=== PATIENT | female | born 1990 | race Caucasian/White ===

== ENCOUNTER 2016-07-15 00:15 | Emergency (ER) | payer OTHER ==
--- NOTE | 2016-07-15 02:06 | ED CLINICAL REPORT ---
Clinical Report - Physicians/Mid Levels [facility] [address] [place] [address] 07/15/2016 0:15 [id number] Ar[facility]- By private vehicle. Historian- patient. HISTORY OF PRESENT ILLNESS Chief Complaint: COUGH. This started Past 2 weeks and is still present (staying the same). It was abrupt in onset and has been constant but is not gone now. The illness is described as moderate. The patient has had a cough, difficulty breathing, nasal congestion, fever and chills. She has had a nasal discharge. Additional history - The patient has had contact with a sick individual. Similar symptoms previously: None. Recent medical care: The patient was seen recently in a clinic (Patient on antibiotics and steroid medications). REVIEW OF SYSTEMS No diarrhea, abdominal pain, pedal edema, calf pain or skin rash. All systems otherwise negative, except as recorded above. PAST HISTORY See nurses notes. SOCIAL HISTORY Smoker- current status unknown. History of occasional drug use: marijuana. No alcohol use. No recent travel. Is a local resident. no trouble to places with high risk for tuberculosis. FAMILY HISTORY (family history of asthma). ADDITIONAL NOTES The nursing notes have been reviewed. PHYSICAL EXAM Vital Signs: 07/15/2016 00:19 BP: 125/84. HR: 118. RR: 18. O2 saturation: 100%. Temp: 98.8 F. Pain level now: 8/10. Blood pressure normal. Oxygen saturation normal. Appearance: Alert. No acute distress. Eyes: Pupils equal, round and reactive to light. Eyes normal inspection. ENT: Ears normal. Nose normal. Pharynx normal. Uvula midline. Neck: Normal inspection. Neck supple. No meningeal signs. CVS: Normal heart rate and rhythm. Heart sounds normal. Pulses normal. Respiratory: No respiratory distress. Breath sounds normal. No accessory muscle use, rales, rhonchi, wheezes or stridor. Abdomen: Soft and nontender. No organomegaly. Back: Normal inspection. Skin: Skin warm and dry. Normal skin color. No rash. Normal skin turgor. Extremities: Extremities exhibit normal ROM. No lower extremity edema. Neuro: Oriented X 3. No motor deficit. LABS, X-RAYS, AND EKG Chest X-ray: No acute disease. Normal lung markings present. Normal heart size. Mediastinum normal. No infiltrate. Views: PA and lateral. Technique: good. The X-rays were independently viewed by me and interpreted contemporaneously by me. PROGRESS AND PROCEDURES Course of Care: tthe patient is a pleasant 25-year-old female with past medical history significant for childhood asthma presented for evaluation of shortness of breath. Patient reports that the shortness of breath has been going on for the past 2 weeks. The patient states that she recently been seen by an outside facility and treated with antibiotics. Patient states that she's been on the antibiotics for approximately one day now. Patient reports coughing up blood. Likely due to bronchitis. We'll evaluate chest x-ray. Patient states she has not had a chest x-ray at. We'll provide breathing treatment here in the emergency department. The patient appears nontoxic and is in no acute distress. Respirations are regular and unlabored. Patient does have moderate amount of coughing. Medications for cough provided here in the emergency department. Do not feel patient has a pulmonary embolism. Symptoms are upper respiratory tract in nature. No risk factors for TB. patient reports significant improvement with breathing treatments. Chest x-ray does not show any signs of acute consolidations. Patient is resting in bed and in no acute distress. Patient does have episodes of moderate coughing that has since improved after Antitussive medicine and review treatments provided. patient provided another breathing treatment after reported improvement with her symptoms. Patient with better air movement. We'll reassess after the breathing treatment has been given. Patient was significant improved symptoms while here in the emergency department. Patient reports that she isfeeling better now and feels at a point where she can go home. The patient is having normal nonlabored respirations with good air movement bilaterally. Coughing again has improved. Do not Patient is started been on appropriate medical therapy that startedat an outside facility. Discussed with patient workup, diagnosis, home care, follow-up, and return precautions. All questions answered. The patient expressed understanding of these instructions and was agreeable to them. CLINICAL IMPRESSION Acute bronchospasm Acute bacterial bronchitis. INSTRUCTIONS (continue taking the medications prescribed by your doctor). Your Current Medications: CONTINUE TAKING THE FOLLOWING MEDICATIONS: Albuterol Sulfate HFA Inhalation. Flovent HFA Inhalation. Prescription Medications: Phenergan w/ Codeine 10mg / 6.25mg per 5 mL: take 1-2 teaspoons every 8 hours as needed for pain or cough. Dispense sixty (60) mL. No refill. Substitution is permissible. (use with cautions. can make you very sleepy) Follow-up: Return to the emergency department as needed. Follow up with your doctor in three days. Reason for referral: recheck today's concerns. Summary of care provided to patient via paper. Screening today revealed the patient's blood pressure to be in the normal range. The patient should follow up with a primary care provider for blood pressure management. Understanding of the discharge instructions verbalized by patient. (Electronically signed by Carmelo Jack Dr. 07/18/2016 17:35)
--- NOTE | 2016-07-15 02:07 | ED ORDER SUMMARY ---
..... Patient: BOB SALAZAR OrderSheet VisitID: [id number] [place] [address] 25y, F Registration Date/Time: 07/15/2016 ORDER SHEET Weight: 53.9 kg (stated) Allergies: No Known Drug Allergy GENERAL ORDERS: Chest 2V Urgent (00:07/15/2016 Steven Davidson) (Ack 0:35 Greg ER Substation Electrician Supervisor) (0:53 GUnger) Pulse oximeter (:07/15/2016 Steven Davidson) (0:40 HKone R.N.) MEDICATION ORDERS: DuoNeb Neb Tx 1 unit dose (NOW) (:07/15/2016 Steven Davidson) (Ack 0:35 HKone R.N.) (0:51 HKone R.N.) Phenergan-Codeine PO 10 mL (HIGH ALERT MEDICATION, NOW) (00:07/15/2016 Steven Davidson) (Ack 0:35 HKone R.N.) (0:40 HKone R.N.) Albuterol Neb Tx 5 mg (NOW) (01:07/15/2016 Steven Davidson) (Ack 1:39 HKone R.N.) (2:16 HKone R.N.) IV FLUIDS: ORDER SHEET NOTES: [Electronically signed by Estee Santizo R.N. (02:07/15/2016)] [Electronically signed by Carmelo Jack Dr. (17:34 07/18/2016)] [Electronically locked/signed by Estee Santizo R.N. (02:07/15/2016)]
--- NOTE | 2016-07-15 02:07 | ED NURSING NOTES ---
Clinical Report - Nurses [facility] [address] [place] [address] 07/15/2016 0:15 [id number] TRI[facility] Triage time 0019. Acuity: LEVEL 4. Chief Complaint: COUGH. ARAM COMA SCORE: Aram Coma Scale: 15- eyes open spontaneously (4); best verbal response- oriented x 4 (5); best motor response- obeys commands (6). --00:25 Estee Santizo R.N. 00:19 07/15/16. BP: 125/84. HR: 118. RR: 18 (regular). O2 saturation: 100% on room air. Temp: 98.8 F (oral). Pain level now: 8/10. --00:25 Estee Santizo R.N. Weight: 53.9 kg stated. Height/Length: 66 inches Per Patient. BMI: 19.2. --00:18 Estee Santizo R.N. Medications Albuterol Sulfate HFA Inhalation. --00:23 Estee Santizo R.N. Flovent HFA Inhalation. --00:23 Estee Santizo R.N. Medication/allergy information source: the patient. --00:25 Estee Santizo R.N. Allergies No Known Drug Allergy. --00:23 Estee Santizo R.N. History Arrived by private vehicle. Historian: patient (boyfriend). Accompanied by friend. Primary physician ([facility]). ( pt c/o flu symptoms of cough and cold x 2 weeks. pt seen yesterday at [facility] yesterday and give antibiotic with Albuterol and Flovent inhalers.). Onset. (2 weeks). PAST MEDICAL HX: Last normal menstrual period- Jul 10, 2016. SOCIAL HX: Light tobacco smoker (cigarette)- less than 1/2 a pack per day. History of drug use: marijuana. (daily). No alcohol use. ABUSE ASSESSMENT: No report of abuse. FALL RISK ASSESSMENT: Fall risk assessment completed. No fall risk identified. NUTRITIONAL RISK ASSESSMENT: The nutritional risk assessment revealed no deficiencies. FUNCTIONAL ASSESSMENT: Functional assessment: no impairments noted. LEARNING NEEDS ASSESSMENT: The learning needs assessment revealed no barriers. SKIN INTEGRITY ASSESSMENT: Skin integrity risk assessment completed. No skin integrity risk identified. --00:25 Estee Santizo R.N. ADDITIONAL SURGERIES: Adenoidectomy. --00:23 Estee Santizo R.N. Interventions ID band on patient. To treatment room. --00:25 Estee Santizo R.N. PHYSICAL ASSESSMENT To room via wheelchair. GENERAL / NEURO / PSYCH: Alert. Oriented X 4. Appears in pain. HEENT: Mucous membranes are pink. RESPIRATORY: Respirations not labored. The patient can speak in full sentences. Cough. SKIN: Skin is warm and dry. Normal skin turgor. --00:31 Estee Santizo R.N. NURSING PROGRESS NOTES Patient gowned. Head of bed elevated. Two patient identifiers checked. Call light placed in reach. Side rails up x 1. Bed placed in lowest position. Brakes of bed on. Patient ready for evaluation. --00:25 Estee Santizo R.N. 00:38 07/15/2016 Duoneb (Ipratropium-Albuterol) Neb TX Nebulizer 1 unit dose given. Given by the respiratory therapist. Allergies verified and confirmed 5 rights. --00:51 Estee Santizo R.N. 00:40 07/15/2016 PHENERGAN-CODEINE (Promethazine-Codeine) PO Oral Suspension 10 mL given. Allergies verified and confirmed 5 rights. --00:40 Estee Santizo R.N. pt continues to c/o chest hurting with cough. pt sat up more in stretcher, given a lemon-[place] soda. --01:22 Estee Santizo R.N. 01:22 07/15/16. HR: 118. RR: 18 (unlabored). O2 saturation: 99% on room air. --02:16 Estee Santizo R.N. 01:30 07/15/2016 Albuterol Neb TX Nebulizer 5 mg given. Given by the respiratory therapist. Allergies verified and confirmed 5 rights. --02:16 Estee Santizo R.N. DISPOSITION / DISCHARGE Departure time: 213. Condition at departure: improved. No learning barriers present. Discharge instructions provided and reviewed with the patient. Reviewed medication(s). Prescription(s) given to the patient (phenergan with codeine syrup). Patient verbalized understanding. Written instructions provided in Irish. The patient was discharged by the physician. She was discharged home and accompanied by line director. She left the Emergency Department ambulatory and via private vehicle. Project Lead driving. Medication list reviewed and validated with the patient. --02:15 Estee Santizo R.N. 02:14 07/15/16. BP: 113/70. HR: 113. RR: 18 (unlabored). O2 saturation: 98% on room air. Temp: deferred. Pain level now: 11/27. --02:15 Estee Santizo R.N. Locked/Released at 07/15/2016 2:17 by Estee Santizo R.N.
--- NOTE | 2016-07-15 02:07 | ED NURSING NOTES ---
Clinical Report - Nurses [facility] [address] [place] [address] 07/15/2016 0:15 [id number] TRI[facility] Triage time 0019. Acuity: LEVEL 4. Chief Complaint: COUGH. ARAM COMA SCORE: Aram Coma Scale: 15- eyes open spontaneously (4); best verbal response- oriented x 4 (5); best motor response- obeys commands (6). --00:25 Estee Santizo R.N. 00:19 07/15/16. BP: 125/84. HR: 118. RR: 18 (regular). O2 saturation: 100% on room air. Temp: 98.8 F (oral). Pain level now: 8/10. --00:25 Estee Santizo R.N. Weight: 53.9 kg stated. Height/Length: 66 inches Per Patient. BMI: 19.2. --00:18 Estee Santizo R.N. Medications Albuterol Sulfate HFA Inhalation. --00:23 Estee Santizo R.N. Flovent HFA Inhalation. --00:23 Estee Santizo R.N. Medication/allergy information source: the patient. --00:25 Estee Santizo R.N. Allergies No Known Drug Allergy. --00:23 Estee Santizo R.N. History Arrived by private vehicle. Historian: patient (boyfriend). Accompanied by friend. Primary physician ([facility]). ( pt c/o flu symptoms of cough and cold x 2 weeks. pt seen yesterday at [facility] yesterday and give antibiotic with Albuterol and Flovent inhalers.). Onset. (2 weeks). PAST MEDICAL HX: Last normal menstrual period- Jul 10, 2016. SOCIAL HX: Light tobacco smoker (cigarette)- less than 1/2 a pack per day. History of drug use: marijuana. (daily). No alcohol use. ABUSE ASSESSMENT: No report of abuse. FALL RISK ASSESSMENT: Fall risk assessment completed. No fall risk identified. NUTRITIONAL RISK ASSESSMENT: The nutritional risk assessment revealed no deficiencies. FUNCTIONAL ASSESSMENT: Functional assessment: no impairments noted. LEARNING NEEDS ASSESSMENT: The learning needs assessment revealed no barriers. SKIN INTEGRITY ASSESSMENT: Skin integrity risk assessment completed. No skin integrity risk identified. --00:25 Estee Santizo R.N. ADDITIONAL SURGERIES: Adenoidectomy. --00:23 Estee Santizo R.N. Interventions ID band on patient. To treatment room. --00:25 Estee Santizo R.N. PHYSICAL ASSESSMENT To room via wheelchair. GENERAL / NEURO / PSYCH: Alert. Oriented X 4. Appears in pain. HEENT: Mucous membranes are pink. RESPIRATORY: Respirations not labored. The patient can speak in full sentences. Cough. SKIN: Skin is warm and dry. Normal skin turgor. --00:31 Estee Santizo R.N. NURSING PROGRESS NOTES Patient gowned. Head of bed elevated. Two patient identifiers checked. Call light placed in reach. Side rails up x 1. Bed placed in lowest position. Brakes of bed on. Patient ready for evaluation. --00:25 Estee Santizo R.N. 00:38 07/15/2016 Duoneb (Ipratropium-Albuterol) Neb TX Nebulizer 1 unit dose given. Given by the respiratory therapist. Allergies verified and confirmed 5 rights. --00:51 Estee Santizo R.N. 00:40 07/15/2016 PHENERGAN-CODEINE (Promethazine-Codeine) PO Oral Suspension 10 mL given. Allergies verified and confirmed 5 rights. --00:40 Estee Santizo R.N. pt continues to c/o chest hurting with cough. pt sat up more in stretcher, given a lemon-[place] soda. --01:22 Estee Santizo R.N. 01:22 07/15/16. HR: 118. RR: 18 (unlabored). O2 saturation: 99% on room air. --02:16 Estee Santizo R.N. 01:30 07/15/2016 Albuterol Neb TX Nebulizer 5 mg given. Given by the respiratory therapist. Allergies verified and confirmed 5 rights. --02:16 Estee Santizo R.N. DISPOSITION / DISCHARGE Departure time: 213. Condition at departure: improved. No learning barriers present. Discharge instructions provided and reviewed with the patient. Reviewed medication(s). Prescription(s) given to the patient (phenergan with codeine syrup). Patient verbalized understanding. Written instructions provided in Frisian. The patient was discharged by the physician. She was discharged home and accompanied by wood grainer. She left the Emergency Department ambulatory and via private vehicle. Data Governance Consultant driving. Medication list reviewed and validated with the patient. --02:15 Estee Santizo R.N. 02:14 07/15/16. BP: 113/70. HR: 113. RR: 18 (unlabored). O2 saturation: 98% on room air. Temp: deferred. Pain level now: 11/27. --02:15 Estee Santizo R.N. Locked/Released at 07/15/2016 2:17 by Estee Santizo R.N.
--- NOTE | 2016-07-15 02:07 | ED ORDER SUMMARY ---
..... Patient: BOB SALAZAR OrderSheet [facility] VisitID: [id number] [place] [address] 25y, F Registration Date/Time: 07/15/2016 ORDER SHEET Weight: 53.9 kg (stated) Allergies: No Known Drug Allergy GENERAL ORDERS: Chest 2V Urgent (00:07/15/2016 Steven Davidson) (Ack 0:35 Greg ER Electric Welder Helper) (0:53 GUnger) Pulse oximeter (:07/15/2016 Steven Davidson) (0:40 HKone R.N.) MEDICATION ORDERS: DuoNeb Neb Tx 1 unit dose (NOW) (:07/15/2016 Steven Davidson) (Ack 0:35 HKone R.N.) (0:51 HKone R.N.) Phenergan-Codeine PO 10 mL (HIGH ALERT MEDICATION, NOW) (00:07/15/2016 Steven Davidson) (Ack 0:35 HKone R.N.) (0:40 HKone R.N.) Albuterol Neb Tx 5 mg (NOW) (01:07/15/2016 Steven Davidson) (Ack 1:39 HKone R.N.) (2:16 HKone R.N.) IV FLUIDS: ORDER SHEET NOTES: [Electronically signed by Estee Santizo R.N. (02:07/15/2016)] [Electronically signed by Carmelo Jack Dr. (17:34 07/18/2016)] [Electronically locked/signed by Estee Santizo R.N. (02:07/15/2016)]
--- NOTE | 2016-07-15 06:46 | DIAGNOSTIC IMAGING REPORT ---
PROCEDURE: XR CHEST 2 VIEW INDICATION: COUGH, initial encounter TECHNIQUE: PA and lateral view. COMPARISON: Chest x-ray 02/23/2009 FINDINGS: Mild hyperinflation. Lung are clear. Cardiovascular structures are normal. Bony thorax is unremarkable. IMPRESSION: 1. Hyperinflation
--- NOTE | 2016-07-18 17:35 | ED MAR SUMMARY ---
..... Medication Administration Record [facility] [address] [place] [address] Patient: BOB SALAZAR Visit ID: [id number] 25y, F Weight: 53.9 kg Height/Length: 66 in BMI: 19.2 ALLERGIES: No Known Drug Allergy Given 00:38 07/15/2016 Estee Santizo R.N. Medication Administered: DUONEB [NEB TX] (IPRATROPIUM-ALBUTEROL), Dose: 1 unit dose Nebulizer Neb TX. Medication Ordered: DuoNeb Neb Tx 1 unit dose (NOW). Given 00:40 07/15/2016 Estee Santizo R.N. Medication Administered: PHENERGAN-CODEINE [PO] (PROMETHAZINE-CODEINE), Dose: 10 mL Oral Suspension PO. Medication Ordered: Phenergan-Codeine PO 10 mL (HIGH ALERT MEDICATION, NOW). Given 01:30 07/15/2016 Estee Santizo R.N. Medication Administered: ALBUTEROL [NEB TX], Dose: 5 mg Nebulizer Neb TX. Medication Ordered: Albuterol Neb Tx 5 mg (NOW).
--- NOTE | 2016-07-18 17:35 | ED MED RECONCILIATION SUMMARY ---
Patient: BBO SALAZAR Medication Reconciliation Report [facility] VisitID: [id number] [address] [place] [address] 25y, F Registration Date/Time: 07/15/2016 Weight: 53.9 kg Height/Length: 66 in. BMI: 19.2 ALLERGIES: No Known Drug Allergy The patient's Home Medications are listed below: CONTINUE TAKING THE FOLLOWING MEDICATIONS: Albuterol Sulfate HFA Inhalation Flovent HFA Inhalation The source(s) of the original Home Medication information: patient The following Medications were given to the patient in the Emergency Department: PHENERGAN-CODEINE [PO] PO 10 mL, administered: 07/15/2016 12:40:00 AM Duoneb [Neb Tx] Neb TX 1 unit dose, administered: 07/15/2016 12:38:00 AM Albuterol [Neb Tx] Neb TX 5 mg, administered: 07/15/2016 1:30:00 AM The following Medications were prescribed to the patient: Phenergan w/ Codeine 10mg / 6.25mg per 5 mL: take 1-2 teaspoons every 8 hours as needed for pain or cough. Dispense sixty (60) mL. No refill. Substitution is permissible.(use with cautions. can make you very sleepy) -- Carmelo Jack Dr.
--- NOTE | 2016-07-18 17:35 | ED DISCHARGE INSTRUCTIONS ---
Patient: BOB SALAZAR General Instructions [facility] VisitID: [id number] [place] [address] 25y, F Registration Date/Time: 07/15/2016 Acute bronchospasm Acute bacterial bronchitis. INSTRUCTIONS (continue taking the medications prescribed by your doctor). Your Current Medications: CONTINUE TAKING THE FOLLOWING MEDICATIONS: Albuterol Sulfate HFA Inhalation. Flovent HFA Inhalation. Prescription Medications: Phenergan w/ Codeine 10mg / 6.25mg per 5 mL: take 1-2 teaspoons every 8 hours as needed for pain or cough. Dispense sixty (60) mL. No refill. Substitution is permissible. (use with cautions. can make you very sleepy) Follow-up: Return to the emergency department as needed. Follow up with your doctor in three days. Reason for referral: recheck today's concerns. Summary of care provided to patient via paper. Screening today revealed the patient's blood pressure to be in the normal range. The patient should follow up with a primary care provider for blood pressure management. Understanding of the discharge instructions verbalized by patient. ADDITIONAL INFORMATION Bronchospasm (Adult) Bronchospasm occurs when the airways (bronchial tubes) go into spasm and contract. This makes it hard to breathe and causes wheezing (a high-pitched whistling sound). Bronchospasm can also cause frequent coughing without the wheezing sound. Bronchospasm is due to irritation, inflammation or allergic reaction of the airways. People with asthma get bronchospasm. However, not everyone with bronchospasm has asthma. Being exposed to harmful fumes, a recent case of bronchitis, or a flare-up of chronic emphysema (COPD) may cause the airways to spasm. An episode of bronchospasm may last 7-14 days. Medicine may be prescribed to relax the airways and prevent wheezing. Antibiotics will be prescribed only if your doctor thinks there is a bacterial infection. Antibiotics do not help a viral infection. Home Care: Drink lots of water or other fluids (at least 10 glasses a day) during an attack. This will loosen lung secretions and make it easier to breathe. If you have heart or kidney disease, check with your doctor before you drink extra amounts of fluids. Take prescribed medicine exactly at the times advised. If you have a hand-held inhaler or aerosol breathing medicine, do not use it more than once every four hours, unless told to do so. If prescribed an antibiotic or prednisone, take all of the medicine even if you are feeling better after a few days. Do not smoke. Avoid being exposed to the smoke of others. If you were given an inhaler, use it exactly as directed. If you need to use it more often than prescribed, your condition may be getting worse. Contact your doctor or this facility. Follow Up With Your Doctor, Or As Directed. [ NOTE: If you are age 65 or older, or if you have chronic asthma or COPD, we recommend a PNEUMOCOCCAL VACCINATION every five years and a yearly INFLUENZA VACCINATION (FLU-SHOT) every . Ask your doctor about this.] Get Prompt Medical Attention If Any Of The Following Occur: Increased wheezing or shortness of breath Need to use your inhalers more often than usual without relief Fever of 100.4F (38C) or higher, or as directed by your healthcare provider Coughing up lots of dark-colored or bloody sputum (mucus) Chest pain with each breath You do not start to improve within 24 hours You have been given the following additional information: Bronchospasm (Adult) (Electronically signed by Carmelo Jack Dr. 07/18/2016 17:35)
--- NOTE | 2016-07-18 17:35 | ED MAR SUMMARY ---
..... Medication Administration Record Merged With [facility] [address] [place] [address] Patient: BOB SALAZAR Visit ID: [id number] 25y, F Weight: 53.9 kg Height/Length: 66 in BMI: 19.2 ALLERGIES: No Known Drug Allergy Given 00:38 07/15/2016 Estee Santizo R.N. Medication Administered: DUONEB [NEB TX] (IPRATROPIUM-ALBUTEROL), Dose: 1 unit dose Nebulizer Neb TX. Medication Ordered: DuoNeb Neb Tx 1 unit dose (NOW). Given 00:40 07/15/2016 Estee Santizo R.N. Medication Administered: PHENERGAN-CODEINE [PO] (PROMETHAZINE-CODEINE), Dose: 10 mL Oral Suspension PO. Medication Ordered: Phenergan-Codeine PO 10 mL (HIGH ALERT MEDICATION, NOW). Given 01:30 07/15/2016 Estee Santzio R.N. Medication Administered: ALBUTEROL [NEB TX], Dose: 5 mg Nebulizer Neb TX. Medication Ordered: Albuterol Neb Tx 5 mg (NOW).
--- NOTE | 2016-07-18 17:35 | ED MED RECONCILIATION SUMMARY ---
Patient: BOB SALAZAR Medication Reconciliation Report [facility] VisitID: [id number] [address] [place] [address] 25y, F Registration Date/Time: 07/15/2016 Weight: 53.9 kg Height/Length: 66 in. BMI: 19.2 ALLERGIES: No Known Drug Allergy The patient's Home Medications are listed below: CONTINUE TAKING THE FOLLOWING MEDICATIONS: Albuterol Sulfate HFA Inhalation Flovent HFA Inhalation The source(s) of the original Home Medication information: patient The following Medications were given to the patient in the Emergency Department: PHENERGAN-CODEINE [PO] PO 10 mL, administered: 07/15/2016 12:40:00 AM Duoneb [Neb Tx] Neb TX 1 unit dose, administered: 07/15/2016 12:38:00 AM Albuterol [Neb Tx] Neb TX 5 mg, administered: 07/15/2016 1:30:00 AM The following Medications were prescribed to the patient: Phenergan w/ Codeine 10mg / 6.25mg per 5 mL: take 1-2 teaspoons every 8 hours as needed for pain or cough. Dispense sixty (60) mL. No refill. Substitution is permissible.(use with cautions. can make you very sleepy) -- Carmelo [address]
== END 2016-07-15 02:14 | disposition home or self-care (01) ==
LOC: ED SRH 00:15
DX: J20.8 Acute bronchitis due to other specified organisms (principal); F17.200 Nicotine dependence, unspecified, uncomplicated